=== PATIENT | male | born 1990 | race African-American/Black ===

== ENCOUNTER 2017-12-12 12:09 | Emergency (ER) | payer SELFPAY ==
[~2017-12-12] VITALS: Ht 182.9 cm; Wt 68.0 kg
[2017-12-12 12:09] VITALS: BP 119/70
--- NOTE | 2017-12-12 12:36 | Emergency Room Report ---
History of Present Illness General Chief Complaint: Multiple Trauma/Fall Source: EMS Present Illness HPI 21-year-old male presents to the emergency department complaining of 10 out of 10 in severity localized pain to the left arm and elbow times one hour. Patient reports status post trip and fall. Patient denies hitting his head he denies loss of consciousness he denies midline neck or back pain. He denies pain elsewhere in his body,and no other symptoms at this time. Pain is exacerbated with palpation and movement of the left arm/ elbow. denies open wounds or bleeding. Allergies: Coded Allergies: No Known Allergies (Unverified , 12/12/17) Patient History Past Medical History: see triage record Past Surgical History: none Pertinent Family History: none Reviewed Nursing Documentation: PMH: Agreed; PSxH: Agreed Nursing Documentation-PMH Past Medical History: No Stated History Review of Systems All Other Systems: negative except mentioned in HPI Physical Exam Vital Signs Date Time Temp Pulse Resp B/P (MAP) Pulse Ox O2 Delivery O2 Flow Rate FiO2 12/12/17 12:06 97.6 86 19 119/70 99 Room Air 97.5 Sp02 EP Interpretation: reviewed, normal General Appearance: no apparent distress, alert, GCS 15, non-toxic Head: normocephalic, atraumatic Eyes: bilateral eye normal inspection, bilateral eye PERRL ENT: hearing grossly normal, normal voice Neck: full range of motion, no bony tend Respiratory: chest non-tender, lungs clear, normal breath sounds, speaking full sentences Cardiovascular #1: regular rate, rhythm Gastrointestinal: non tender, soft Musculoskeletal: back normal, gait/station normal, normal range of motion, tender - distal lateral humerus and lateral left elbow. NVI. pain with attempts with ROM. visible deformity. Neurologic: alert, oriented x3, responsive, motor strength/tone normal, sensory intact, normal gait, speech normal, grossly normal Psychiatric: judgement/insight normal Skin: normal color, no rash, warm/dry, well hydrated, other - no bruises or open wounds Medical Decision Making PA Attestation Dr. Ambriz is my supervising Physician whom patient management has been discussed with. Diagnostic Impression: Primary Impression: Humerus shaft fracture Qualified Codes: S42.345A - Nondisplaced spiral fracture of shaft of humerus, left arm, initial encounter for closed fracture ER Course 21-year-old male presents to the emergency department complaining of 10 out of 10 in severity localized pain to the left arm and elbow times one hour. Patient reports status post trip and fall. Patient denies hitting his head he denies loss of consciousness he denies midline neck or back pain. He denies pain elsewhere in his body,and no other symptoms at this time. Pain is exacerbated with palpation and movement of the left arm/ elbow. denies open wounds or bleeding. Ddx considered but are not limited to Fracture, dislocation, contusion, Sprain/ Strain/Spasm, Vital signs: are WNL, pt. is afebrile H&PE are most consistent with musculoskeletal injury will perform imaging to r/ o fractures/dislocations. ORDERS: - X-rays of left Humerus and elbow - negative for fx, Dislocation, or significant soft tissue injury, per preliminary read in ED, and signed by PORTIA Valdovinos, my supervising physician has reviewed, and agrees with my interpretation. ED INTERVENTIONS: -Pt. cleared from [facility] clinically. - [place] PO - Sugar tong Splint applied to the left humerus by marine services technician. Pt. remains neurovascularly intact. - Left arm Sling applied by marine services technician. Pt. remains neurovascularly intact. DISCHARGE: At this time pt. is stable for d/c to home. Will provide printed patient care instructions, and any necessary prescriptions. Care plan and follow up instructions have been discussed with the patient prior to discharge. Other X-Ray Diagnostic Results Other X-Ray Diagnostic Results #1: X-Ray ordered: Left humerus # of Views/Limited Vs Complete: 2 View Indication: Pain EP Interpretation: Yes PA Xray: Interpretation reviewed, by supervising MD, and agrees with findings. Interpretation: no dislocation, other - mid shaft humerus fracture. Impression: Other - abnormal Electronically Signed by: Annabel Valdovinos PA-C Other X-Ray Diagnostic Results #2: X-Ray ordered: left Elbow # of Views/Limited Vs Complete: 3 View Indication: Pain EP Interpretation: Yes PA Xray: Interpretation reviewed, by supervising MD, and agrees with findings. Interpretation: no dislocation, other - humerus fracture noted. Impression: Other - abnormal Electronically Signed by: Annabel Valdovinos PA-C Last Vital Signs Date Time Temp Pulse Resp B/P (MAP) Pulse Ox O2 Delivery O2 Flow Rate FiO2 12/12/17 12:09 97.5 86 19 119/70 99 Room Air 97.5 Status: improved Disposition: HOME, SELF-CARE Condition: Stable Scripts Ibuprofen* (MOTRIN*) 600 Mg Tablet 600 MG ORAL THREE TIMES A DAY, #30 TAB 0 Refills Prov: Annabel Valdovinos 12/12/17 Hydrocodone Bit/Acetaminophen 5-325* (NORCO 5-325*) 1 Each Tablet 1 TAB ORAL Q8HR PRN for For Pain, #10 TAB 0 Refills Prov: Annabel Valdovinos 12/12/17 Patient Instructions: Humerus Fracture Treated With Immobilization, Easy-to- Read Additional Instructions: Take medications as directed. Follow up with an BILL POSTER INSTALLER in 3-5 days, even if your symptoms have resolved. If symptoms persist MRI may be required at the discretion of your PCP or Ortho Specialist. --Please review list of primary care clinics, if you do not already have a primary care provider who can give you an Orthopedic Referral. Return sooner to ED if new symptoms occur, or current symptoms become worse. Do not drink alcohol, drive, or operate heavy machinery while taking [place] as this may cause drowsiness. - Please note that this Emergency Department Report was dictated using [employer] tech technology software, occasionally this can lead to erroneous entry secondary to interpretation by the dictation equipment. Annabel Valdovinos Dec 12, 2017 12:36
[2017-12-12] MEDS ORDERED: Norco 5mg/325mg tab ORAL ONE (12:45)
[2017-12-12] MEDS ORDERED: NORCO 5-325 TA1 EACH ORAL (13:40)
[2017-12-12] MEDS ORDERED: IBUPROFEN600 MG ORAL ×2 (13:40→19:31)
[2017-12-12 13:55] VITALS: BP 124/76
[2017-12-12 13:56] VITALS: BP 119/70
[2017-12-12] MEDS ORDERED: NKM (18:59)
--- NOTE | 2017-12-13 10:58 | Diagnostic Imaging Report ---
Indication: Pain Findings: 3 views of the left elbow were obtained. There is acute comminuted fracture of the distal shaft of the left humerus. The fracture appears to be above the condyles. One fracture line that is vertical does appear to extend to just above the medial epicondyles the humerus. The radius and ulna appear normal. There is no joint effusion. IMPRESSION: Acute fracture of the diaphysis of the distal left humerus with one fracture line extending to the metadiaphysis.
--- NOTE | 2017-12-13 11:01 | Diagnostic Imaging Report ---
Indication: Pain Findings: 2 views of the left humerus were obtained. There is a fracture of the distal shaft of the left humerus. The fracture is comminuted nonangulated. IMPRESSION: Acute fracture distal humerus
== END 2017-12-12 13:56 | disposition home or self-care (01) ==
LOC: EDBD 12:09 → EMR 12:56
DX: S42.352A Displaced comminuted fracture of shaft of humerus, left arm, initial encounter for closed fracture (principal); W01.0XXA Fall on same level from slipping, tripping and stumbling without subsequent striking against object, initial encounter; Y92.9 Unspecified place or not applicable
CPT/HCPCS: 29105; 99284